=== PATIENT | male | born 1965 | race Caucasian/White ===

== ENCOUNTER → 2016-05-29 | Outpatient (REF) | payer OTHER ==
[~2016-05-29] MED LIST: CITA40TA4 PO; KLONOPIN PO; LEVO137T2 PO; TRAZ100T4 PO
[2016-05-29 12:25] LABS: BASO % 0.3 % (0.0-1.0); EOS % 0.4 % (0.0-3.0); LARGE UNSTAINED CELL # 0.1 K/mm3 (0.0-0.4); LARGE UNSTAINED CELL % 2.5 % (0.0-4.0); LYMPH # 0.9 K/mm3 (1.5-4.5); LYMPH % 26.5 % (24.0-44.0); MEAN CORPUSCULAR HEMOGLOBIN 30.4 pg (27.0-33.0); MEAN CORPUSCULAR HGB CONC 31.9 g/dl (32.0-36.5); MEAN CORPUSCULAR VOLUME 95.5 fl (80.0-96.0); MONO # 0.4 K/mm3 (0.0-0.8); MONO % 10.4 % (0.0-5.0); NEUTROPHILS # 2.1 K/mm3 (1.8-7.7); NEUTROPHILS % 59.8 % (36.0-66.0); PLATELET COUNT, AUTOMATED 352 k/mm3 (150-450); RED CELL DISTRIBUTION WIDTH 12.7 % (11.5-14.5); WHITE BLOOD COUNT 3.5 K/mm3 (4.0-10.0)
[2016-05-29 13:40] LABS: ALBUMIN 4.3 GM/DL (3.2-5.2); ALBUMIN/GLOBULIN RATIO 1.54 (1.00-1.93); ALKALINE PHOSPHATASE 71 U/L (45-117); ALT/SGPT 51 U/L (12-78); ANION GAP 10 MEQ/L (8-16); AST/SGOT 32 U/L (15-37); BILIRUBIN,TOTAL 0.6 MG/DL (0.2-1.0); BLOOD UREA NITROGEN 6 MG/DL (7-18); CALCIUM LEVEL 9.5 MG/DL (8.5-10.1); CARBON DIOXIDE LEVEL 30 MEQ/L (21-32); CHLORIDE LEVEL 103 MEQ/L (98-107); CHOLESTEROL LEVEL 193 MG/DL (<200); CREATININE FOR GFR 1.16 MG/DL (0.70-1.30); FREE T4 1.52 NG/DL (0.76-1.46); GLOMERULAR FILTRATION RATE > 60.0 (>60); GLUCOSE, FASTING 98 MG/DL (70-105); SODIUM LEVEL 143 MEQ/L (136-145); TOTAL PROTEIN 7.1 GM/DL (6.4-8.2); TRIGLYCERIDES LEVEL 86 MG/DL (<150)
== END ==
LOC: M SFHCADAM 10:19
PROVIDERS: ATTEND Family Medicine
DX: E89.0 Postprocedural hypothyroidism (principal); F51.01 Primary insomnia; E55.9 Vitamin D deficiency, unspecified

== ENCOUNTER → 2016-07-10 | Outpatient (REF) | payer OTHER ==
[2016-07-10 20:17] LABS: FREE T4 1.45 NG/DL (0.76-1.46)
== END ==
LOC: M SFHCADAM 15:26
PROVIDERS: ATTEND Physician Assistant Medical
DX: E89.0 Postprocedural hypothyroidism (principal)

== ENCOUNTER → 2016-07-21 | Outpatient (REF) | payer OTHER ==
[2016-07-21 14:01] LABS: ALBUMIN 3.7 GM/DL (3.2-5.2); ALBUMIN/GLOBULIN RATIO 1.09 (1.00-1.93); ALKALINE PHOSPHATASE 100 U/L (45-117); ALT/SGPT 24 U/L (12-78); ANION GAP 9 MEQ/L (8-16); AST/SGOT 38 U/L (15-37); BILIRUBIN,TOTAL 0.4 MG/DL (0.2-1.0); BLOOD UREA NITROGEN 4 MG/DL (7-18); CALCIUM LEVEL 9.1 MG/DL (8.5-10.1); CARBON DIOXIDE LEVEL 28 MEQ/L (21-32); CHLORIDE LEVEL 102 MEQ/L (98-107); CREATININE FOR GFR 0.81 MG/DL (0.70-1.30); GLOMERULAR FILTRATION RATE > 60.0 (>60); GLUCOSE, FASTING 92 MG/DL (70-105); POTASSIUM SERUM 4.2 MEQ/L (3.5-5.1); SODIUM LEVEL 139 MEQ/L (136-145); TOTAL PROTEIN 7.1 GM/DL (6.4-8.2)
[2016-07-21 14:38] LABS: BASO % 0.7 % (0.0-1.0); EOS # 0.1 K/mm3 (0.0-0.50); LARGE UNSTAINED CELL # 0.1 K/mm3 (0.0-0.4); LARGE UNSTAINED CELL % 2.3 % (0.0-4.0); LYMPH # 1.1 K/mm3 (1.5-4.5); LYMPH % 22.2 % (24.0-44.0); MEAN CORPUSCULAR HEMOGLOBIN 31.7 pg (27.0-33.0); MEAN CORPUSCULAR HGB CONC 32.6 g/dl (32.0-36.5); MEAN CORPUSCULAR VOLUME 97.2 fl (80.0-96.0); MONO # 0.5 K/mm3 (0.0-0.8); MONO % 11.4 % (0.0-5.0); NEUTROPHILS # 2.8 K/mm3 (1.8-7.7); NEUTROPHILS % 61.3 % (36.0-66.0); PLATELET COUNT, AUTOMATED 284 k/mm3 (150-450); RED CELL DISTRIBUTION WIDTH 13.7 % (11.5-14.5); WHITE BLOOD COUNT 4.5 K/mm3 (4.0-10.0)
== END ==
LOC: M SFHCADAM 11:52
PROVIDERS: ATTEND Physician Assistant Medical
DX: R04.2 Hemoptysis (principal)

== ENCOUNTER → 2016-07-21 | Outpatient (CLI) | payer OTHER ==
--- NOTE | 2016-07-21 15:40 | REP ---
Clinical: Hemoptysis . Comparison: 10/20/2014 . Technique: PA and lateral. Findings: The mediastinum and cardiac silhouette are normal. The lung carter are clear and without acute consolidation, effusion, or pneumothorax. A subtle density in the right lower lung field midclavicular line cannot be excluded. The skeletal structures are intact and normal. Impression: 1. Possible small subtle density in the right lower lung zone midclavicular line. Given the patient's history and findings, CT may be warranted for further investigation. Signed by Connor Woodard MD 07/21/2016 12:33 P
== END ==
LOC: M ADAMS 12:00
PROVIDERS: ATTEND Physician Assistant Medical
DX: R04.2 Hemoptysis (principal)

== ENCOUNTER → 2016-07-22 | Outpatient (CLI) | payer OTHER ==
[~2016-07-22] MED LIST changes: +ISOVUE-370 76% 100ML VIAL (Q9967) As Ordered ONE
--- NOTE | 2016-07-22 17:21 | REP ---
Clinical: Cough and shortness of breath. Hemoptysis. Technique: Axial contrast enhanced images from the thoracic inlet to the upper abdomen using 100 ml Isovue 370 intravenous contrast material with multiplanar re-formations. Findings: Satisfactory enhancement of the pulmonary vasculature is achieved and no filling defects are identified to suggest pulmonary embolus. Further evaluation of the mediastinum demonstrates normal thoracic aorta, heart and pericardium. The bilateral lung carter demonstrate right perihilar and infrahilar peribronchial thickening and small lingular opacity suggesting bronchitis and atelectasis. No pleural effusion or pneumothorax. No adenopathy noted. Surrounding musculoskeletal structures intact Impression: No evidence for pulmonary embolus. Bronchitis and small lingular atelectasis. Signed by Connor Woodard MD 07/22/2016 05:12 P
== END ==
LOC: M RAD 16:44
PROVIDERS: ATTEND Physician Assistant Medical
DX: R05 Cough (principal)

== ENCOUNTER → 2016-11-12 | Outpatient (REF) | payer OTHER, SELFPAY ==
[~2016-11-12] MED LIST changes: -ISOVUE-370 76% 100ML VIAL (Q9967) As Ordered ONE; +TRAZ-136 PO; -TRAZ100T4 PO
[2016-11-12 12:59] LABS: FREE T4 0.98 NG/DL (0.76-1.46)
== END ==
LOC: M SFHCADAM 09:14
PROVIDERS: ATTEND Physician Assistant Medical
DX: E89.0 Postprocedural hypothyroidism (principal)

== ENCOUNTER → 2017-09-28 | Outpatient (REF) | payer MEDICAID, SELFPAY ==
[2017-09-28 12:15] LABS: BASO # 0.1 10^3/uL (0.0-0.2); EOS # 0.1 10^3/uL (0.0-0.50); HEMATOCRIT 48.4 % (42.0-52.0); HEMOGLOBIN 16.2 g/dl (13.5-17.5); IMMATURE GRANULOCYTE % 0.2 % (0-3.0); LYMPH # 1.1 10^3/uL (1.5-4.5); LYMPH % 21.6 % (24.0-44.0); MEAN CORPUSCULAR HEMOGLOBIN 32.3 pg (27.0-33.0); MEAN CORPUSCULAR HGB CONC 33.5 g/dl (32.0-36.5); MEAN CORPUSCULAR VOLUME 96.6 fl (80.0-96.0); MONO # 0.7 10^3/uL (0.0-0.8); MONO % 14.5 % (0.0-5.0); NEUTROPHILS % 60.7 % (36.0-66.0); PLATELET COUNT, AUTOMATED 282 10^3/uL (150-450); RED BLOOD COUNT 5.01 10^6/uL (4.30-6.10); RED CELL DISTRIBUTION WIDTH 12.3 % (11.5-14.5)
[2017-09-28 12:42] LABS: ALBUMIN 3.8 GM/DL (3.2-5.2); ALBUMIN/GLOBULIN RATIO 1.19 (1.00-1.93); ALKALINE PHOSPHATASE 117 U/L (45-117); ALT/SGPT 70 U/L (12-78); ANION GAP 7 MEQ/L (8-16); AST/SGOT 81 U/L (7-37); BILIRUBIN,TOTAL 1.1 MG/DL (0.2-1.0); BLOOD UREA NITROGEN 5 MG/DL (7-18); CALCIUM LEVEL 8.8 MG/DL (8.5-10.1); CARBON DIOXIDE LEVEL 31 MEQ/L (21-32); CHLORIDE LEVEL 104 MEQ/L (98-107); CHOLESTEROL LEVEL 181 MG/DL (<200); CHOLESTEROL RISK RATIO 2.129 (<5); CREATININE FOR GFR 0.89 MG/DL (0.70-1.30); GLOMERULAR FILTRATION RATE > 60.0 (>56); GLUCOSE, FASTING 87 MG/DL (70-100); HDL CHOLESTEROL 85 MG/DL (>40); LDL CHOLESTEROL 86.8 MG/DL (<100); NON-HDL-C 96 MG/DL; POTASSIUM SERUM 4.1 MEQ/L (3.5-5.1); SODIUM LEVEL 142 MEQ/L (136-145); THYROID STIMULATING HORMONE 0.159 uIU/ML (0.358-3.740); TRIGLYCERIDES LEVEL 46 MG/DL (<150)
[2017-09-28 12:56] LABS: TOTAL 25(OH) VITAMIN D 28.5 NG/ML (30.0-100.0)
== END ==
LOC: M SFHCADAM 08:16
DX: Z00.00 Encounter for general adult medical examination without abnormal findings (principal); E89.0 Postprocedural hypothyroidism; E55.9 Vitamin D deficiency, unspecified
CPT/HCPCS: 84443

== ENCOUNTER → 2017-11-19 | Outpatient (CLI) | payer OTHER, SELFPAY | LOC: M ADAMS 16:27 | DX: R05 Cough (principal) | CPT/HCPCS: 71046 ==

== ENCOUNTER → 2017-12-11 | Outpatient (REF) | payer OTHER | LOC: M SFHCADAM 14:02 | DX: E89.0 Postprocedural hypothyroidism (principal) ==

== ENCOUNTER → 2018-07-27 | Outpatient (REF) | payer MEDICARE, OTHER, SELFPAY ==
[~2018-07-27] MED LIST changes: -TRAZ-136 PO; +TRAZ-163 PO
[2018-07-27 12:45] LABS: BASO # 0.1 10^3/uL (0.0-0.2); BASO % 1.3 % (0.0-1.0); EOS # 0.1 10^3/uL (0.0-0.50); EOS % 2.3 % (0.0-3.0); HEMATOCRIT 49.8 % (42.0-52.0); HEMOGLOBIN 16.7 g/dl (13.5-17.5); LYMPH # 1.4 10^3/uL (1.5-4.5); LYMPH % 24.2 % (24.0-44.0); MEAN CORPUSCULAR HEMOGLOBIN 32.6 pg (27.0-33.0); MEAN CORPUSCULAR HGB CONC 33.5 g/dl (32.0-36.5); MEAN CORPUSCULAR VOLUME 97.3 fl (80.0-96.0); MONO # 0.9 10^3/uL (0.0-0.8); MONO % 16.1 % (0.0-5.0); NEUTROPHILS # 3.1 10^3/uL (1.8-7.7); NEUTROPHILS % 55.9 % (36.0-66.0); PLATELET COUNT, AUTOMATED 285 10^3/uL (150-450); RED BLOOD COUNT 5.12 10^6/uL (4.30-6.10); WHITE BLOOD COUNT 5.6 10^3/uL (4.0-10.0)
[2018-07-27 13:09] LABS: ALT/SGPT 58 U/L (12-78); BILIRUBIN,TOTAL 0.5 MG/DL (0.2-1.0); BLOOD UREA NITROGEN 7 MG/DL (7-18); CALCIUM LEVEL 8.8 MG/DL (8.5-10.1); CARBON DIOXIDE LEVEL 28 MEQ/L (21-32); CHLORIDE LEVEL 103 MEQ/L (98-107); CHOLESTEROL LEVEL 222 MG/DL (<200); CHOLESTEROL RISK RATIO 3.313 (<5); CREATININE FOR GFR 0.87 MG/DL (0.70-1.30); FREE T4 1.54 NG/DL (0.76-1.46); GLOMERULAR FILTRATION RATE > 60.0 (>56); GLUCOSE, FASTING 81 MG/DL (70-100); HDL CHOLESTEROL 67 MG/DL (>40); LDL CHOLESTEROL 139 MG/DL (<100); NON-HDL-C 155 MG/DL; POTASSIUM SERUM 4.2 MEQ/L (3.5-5.1); SODIUM LEVEL 138 MEQ/L (136-145); THYROID STIMULATING HORMONE 0.449 uIU/ML (0.358-3.740); TOTAL PROTEIN 7.4 GM/DL (6.4-8.2); TRIGLYCERIDES LEVEL 82 MG/DL (<150)
== END ==
LOC: M SFHCADAM 08:05
PROVIDERS: ATTEND Physician Assistant Medical
DX: E89.0 Postprocedural hypothyroidism (principal); Z93.0 Tracheostomy status; R05 Cough
CPT/HCPCS: 80053; 80061; 84439; 84443; 85025; G0463

== ENCOUNTER → 2019-08-25 | Outpatient (REF) | payer OTHER, SELFPAY ==
[~2019-08-25] MED LIST changes: -TRAZ-163 PO; +TRAZ-257 PO
[2019-08-25 14:29] LABS: FREE T4 1.39 NG/DL (0.76-1.46); THYROID STIMULATING HORMONE 0.11 uIU/ML (0.358-3.740)
== END ==
LOC: M SFHCADAM 11:09
PROVIDERS: ATTEND Physician Assistant Medical
DX: E89.0 Postprocedural hypothyroidism (principal)

== ENCOUNTER → 2020-09-07 | Outpatient (REF) | payer OTHER, SELFPAY ==
[2020-09-07 12:49] LABS: BASO # 0.1 10^3/uL (0.0-0.2); BASO % 0.8 % (0.0-1.0); EOS # 0.1 10^3/uL (0.0-0.5); EOS % 1.6 % (0.0-3.0); HEMOGLOBIN 15.3 g/dl (13.5-17.5); LYMPH # 1.5 10^3/uL (1.5-5.0); LYMPH % 23.5 % (24.0-44.0); MEAN CORPUSCULAR HEMOGLOBIN 31.9 pg (27.0-33.0); MEAN CORPUSCULAR HGB CONC 31.9 g/dl (32.0-36.5); MEAN CORPUSCULAR VOLUME 100.2 fl (80.0-96.0); MONO # 0.9 10^3/uL (0.0-0.8); MONO % 14.4 % (2.0-8.0); NEUTROPHILS # 3.7 10^3/uL (1.5-8.5); NEUTROPHILS % 59.4 % (36.0-66.0); PLATELET COUNT, AUTOMATED 298 10^3/uL (150-450); RED BLOOD COUNT 4.79 10^6/uL (4.30-6.10); WHITE BLOOD COUNT 6.3 10^3/uL (4.0-10.0)
[2020-09-07 13:44] LABS: ALBUMIN 3.6 GM/DL (3.2-5.2); ALT/SGPT 33 U/L (12-78); BILIRUBIN,TOTAL 0.7 MG/DL (0.2-1.0); BLOOD UREA NITROGEN 5 MG/DL (7-18); CALCIUM LEVEL 8.9 MG/DL (8.5-10.1); CARBON DIOXIDE LEVEL 30 MEQ/L (21-32); CHLORIDE LEVEL 99 MEQ/L (98-107); CHOLESTEROL LEVEL 194 MG/DL (<200); CHOLESTEROL RISK RATIO 2.811 (<5); CREATININE FOR GFR 0.82 MG/DL (0.70-1.30); FREE T4 1.16 NG/DL (0.76-1.46); GLOMERULAR FILTRATION RATE > 60.0 (>56); GLUCOSE, FASTING 93 MG/DL (70-100); HDL CHOLESTEROL 69 MG/DL (>40); LDL CHOLESTEROL 105 MG/DL (<100); NON-HDL-C 125 MG/DL; POTASSIUM SERUM 4.3 MEQ/L (3.5-5.1); SODIUM LEVEL 134 MEQ/L (136-145); TOTAL PROTEIN 7.1 GM/DL (6.4-8.2); TRIGLYCERIDES LEVEL 102 MG/DL (<150)
[2020-09-07 14:16] LABS: TOTAL 25(OH) VITAMIN D 16.3 NG/ML (30.0-100.0)
== END ==
LOC: M SFHCADAM 09:42
PROVIDERS: ATTEND Physician Assistant Medical
DX: E89.0 Postprocedural hypothyroidism (principal); E55.9 Vitamin D deficiency, unspecified; F51.01 Primary insomnia

== ENCOUNTER → 2021-03-05 | Outpatient (REF) | payer OTHER, SELFPAY ==
[~2021-03-05] MED LIST changes: -CITA40TA4 PO; +CITA40TA7 PO
[2021-03-05 14:45] LABS: FREE T4 1.57 NG/DL (0.76-1.46); THYROID STIMULATING HORMONE 0.176 uIU/ML (0.358-3.740)
== END ==
LOC: M SFHCADAM 09:52
PROVIDERS: ATTEND Physician Assistant Medical
DX: E89.0 Postprocedural hypothyroidism (principal); Z12.11 Encounter for screening for malignant neoplasm of colon; Z12.12 Encounter for screening for malignant neoplasm of rectum

== ENCOUNTER → 2021-09-09 | Outpatient (REF) | payer OTHER | LOC: M SFHCADAM 09:56 | PROVIDERS: ATTEND Physician Assistant Medical | DX: Z53.9 Procedure and treatment not carried out, unspecified reason (principal) ==

== ENCOUNTER → 2022-04-29 | Outpatient (REF) | payer OTHER ==
[2022-04-30 13:41] LABS: BASO # 0.1 10^3/uL (0.0-0.2); BASO % 2.4 % (0.0-1.0); EOS # 0.1 10^3/uL (0.0-0.5); EOS % 1.7 % (0.0-3.0); HEMATOCRIT 46.4 % (42.0-52.0); HEMOGLOBIN 15.3 g/dl (13.5-17.5); LYMPH # 1.6 10^3/uL (1.5-5.0); LYMPH % 34.7 % (24.0-44.0); MEAN CORPUSCULAR HEMOGLOBIN 32.2 pg (27.0-33.0); MEAN CORPUSCULAR VOLUME 97.7 fl (80.0-96.0); MONO # 0.9 10^3/uL (0.0-0.8); MONO % 19.4 % (2.0-8.0); NEUTROPHILS # 1.9 10^3/uL (1.5-8.5); NEUTROPHILS % 41.6 % (36.0-66.0); PLATELET COUNT, AUTOMATED 170 10^3/uL (150-450); RED BLOOD COUNT 4.75 10^6/uL (4.30-6.10); WHITE BLOOD COUNT 4.6 10^3/uL (4.0-10.0)
[2022-04-30 14:05] LABS: THYROID STIMULATING HORMONE 0.157 uIU/ML (0.55-4.78)
[2022-04-30 14:06] LABS: TOTAL 25(OH) VITAMIN D 13.5 NG/ML (20.0-100.0)
[2022-04-30 14:09] LABS: ALBUMIN 3.8 G/DL (3.2-5.2); ALKALINE PHOSPHATASE 146 U/L (46-116); ALT/SGPT 30 U/L (7.0-40); AST/SGOT 151 U/L (<34); BLOOD UREA NITROGEN 6 MG/DL (9-23); CALCIUM LEVEL 8.7 MG/DL (8.5-10.1); CARBON DIOXIDE LEVEL 29 MMOL/L (20-31); CHLORIDE LEVEL 98 MMOL/L (98-107); CHOLESTEROL LEVEL 198 MG/DL (<200); CREATININE FOR GFR 0.71 MG/DL (0.70-1.30); GLOMERULAR FILTRATION RATE > 60.0 (>56); GLUCOSE, FASTING 85 MG/DL (60-100); LDL CHOLESTEROL 85.6 MG/DL (<100); NON-HDL-C 99 MG/DL; POTASSIUM SERUM 5.4 MMOL/L (3.5-5.1); SODIUM LEVEL 135 MMOL/L (136-145); TRIGLYCERIDES LEVEL 67 MG/DL (<150)
== END ==
LOC: M SFHCADAM 15:17
PROVIDERS: ATTEND Physician Assistant Medical
DX: E89.0 Postprocedural hypothyroidism (principal); E55.9 Vitamin D deficiency, unspecified; Z13.220 Encounter for screening for lipoid disorders; Z13.0 Encounter for screening for diseases of the blood and blood-forming organs and certain disorders involving the immune mechanism

== ENCOUNTER → 2022-05-12 | Outpatient (CLI) | payer OTHER | LOC: M RAD 07:20 | PROVIDERS: ATTEND Physician Assistant Medical | DX: K76.0 Fatty (change of) liver, not elsewhere classified (principal); R79.89 Other specified abnormal findings of blood chemistry ==

== ENCOUNTER 2022-11-23 19:38 | Emergency (ER) | payer OTHER ==
[~2022-11-23] VITALS: Ht 163.8 cm; Wt 65.9 kg
[2022-11-23 19:52] VITALS: TEMP 97.9
[2022-11-23] MEDS ORDERED: VITA1CAP25 PO (20:03)
[2022-11-23 21:12] LABS: BASO # 0.1 10^3/uL (0.0-0.2); BASO % 1.9 % (0.0-1.0); EOS # 0.1 10^3/uL (0.0-0.5); EOS % 2.1 % (0.0-3.0); HEMOGLOBIN 13.8 g/dl (13.5-17.5); LYMPH # 1.4 10^3/uL (1.5-5.0); LYMPH % 33.5 % (24.0-44.0); MEAN CORPUSCULAR HGB CONC 34.5 g/dl (32.0-36.5); MEAN CORPUSCULAR VOLUME 95.7 fl (80.0-96.0); MONO # 0.8 10^3/uL (0.0-0.8); MONO % 17.8 % (2.0-8.0); NEUTROPHILS # 1.9 10^3/uL (1.5-8.5); NEUTROPHILS % 44.5 % (36.0-66.0); PLATELET COUNT, AUTOMATED 134 10^3/uL (150-450); RED BLOOD COUNT 4.18 10^6/uL (4.30-6.10); WHITE BLOOD COUNT 4.2 10^3/uL (4.0-10.0)
[2022-11-23 21:22] LABS: INR 1.03; PARTIAL THROMBOPLASTIN TIME 31.4 SECONDS (24.8-34.2); PROTHROMBIN TIME 13.7 SECONDS (12.5-14.5)
[2022-11-23 21:31] LABS: CK-MB VALUE MASS 1.9 NG/ML (<3.6)
[2022-11-23 21:33] LABS: CPK CREATINE PHOSPHOKINASE 236 U/L (46-171)
[2022-11-23 21:35] LABS: BLOOD UREA NITROGEN < 5 MG/DL (9-23); CALCIUM LEVEL 8.6 MG/DL (8.5-10.1); CARBON DIOXIDE LEVEL 28 MMOL/L (20-31); CHLORIDE LEVEL 99 MMOL/L (98-107); CREATININE FOR GFR 0.63 MG/DL (0.70-1.30); GLOMERULAR FILTRATION RATE > 60.0 (>56); GLUCOSE, FASTING 94 MG/DL (60-100); POTASSIUM SERUM 3.8 MMOL/L (3.5-5.1); SODIUM LEVEL 138 MMOL/L (136-145)
[2022-11-23] MEDS ORDERED: ISOVUE-370 76% 100ML VIAL As Ordered ONE ×2 (22:03→22:20)
[2022-11-23 23:48] LABS: CK-MB VALUE MASS 1.6 NG/ML (<3.6)
[2022-11-23 23:49] LABS: LIPASE 46 U/L (12-53)
[2022-11-23 23:51] LABS: ALBUMIN 3.7 G/DL (3.2-5.2); ALKALINE PHOSPHATASE 158 U/L (46-116); ALT/SGPT 31 U/L (7.0-40); AST/SGOT 119 U/L (<34); BILIRUBIN,DIRECT 0.5 MG/DL (<0.4); BILIRUBIN,TOTAL 1.1 MG/DL (0.3-1.2); TOTAL PROTEIN 7.4 G/DL (5.7-8.2)
[2022-11-23 23:56] LABS: MB/CK RELATIVE INDEX 0.7 (< OR =4)
[2022-11-24] MEDS ORDERED: CEFD300C PO (00:02)
[2022-11-24] MEDS ORDERED: ZITHTAB PO (00:02)
[2022-11-24] MEDS ORDERED: CEFDINIR 300 MG CAP (OMNICEF) PO ONE (00:05)
[2022-11-24] MEDS ORDERED: AZITHROMYCIN 250MG TABLET PO ONE (00:05)
[2022-11-24 00:15] VITALS: BP 133/67; O2SAT 93
== END 2022-11-24 00:40 | disposition home or self-care (01) ==
LOC: EDBD 19:38 → M ED 19:38
DX: J18.9 Pneumonia, unspecified organism (principal); K80.50 Calculus of bile duct without cholangitis or cholecystitis without obstruction; E03.9 Hypothyroidism, unspecified; Z85.21 Personal history of malignant neoplasm of larynx; Z79.2 Long term (current) use of antibiotics; Z79.899 Other long term (current) drug therapy
CPT/HCPCS: 36415; 71045; 71275; 80048; 80076; 82550; 82553; 83690; 85025; 85379; 85610; 85730; 87486; 87581; 87633; 87798; 93005; 93041; 94760; 99285; Q9967

== ENCOUNTER → 2022-12-15 | Outpatient (REF) | payer MEDICARE ==
[~2022-12-15] MED LIST changes: +CEFD300C PO; +VITA1CAP25 PO; +ZITHTAB PO
[2022-12-15 18:12] LABS: HEPATITIS B CORE ANTIBODY IGM NEGATIVE (NEGATIVE); HEPATITIS C VIRUS ABY INDEX 0.17 INDEX (<0.8)
[2022-12-15 18:22] LABS: ALBUMIN 3.6 G/DL (3.2-5.2); ALKALINE PHOSPHATASE 140 U/L (46-116); ALT/SGPT 25 U/L (7.0-40); AST/SGOT 97 U/L (<34); BILIRUBIN,TOTAL 1.4 MG/DL (0.3-1.2); BLOOD UREA NITROGEN < 5 MG/DL (9-23); CALCIUM LEVEL 8.6 MG/DL (8.5-10.1); CARBON DIOXIDE LEVEL 31 MMOL/L (20-31); CHLORIDE LEVEL 98 MMOL/L (98-107); CREATININE FOR GFR 0.73 MG/DL (0.70-1.30); FREE T4 1.21 NG/DL (0.89-1.76); GLOMERULAR FILTRATION RATE > 60.0 (>56); GLUCOSE, FASTING 76 MG/DL (60-100); POTASSIUM SERUM 3.8 MMOL/L (3.5-5.1); SODIUM LEVEL 134 MMOL/L (136-145); THYROID STIMULATING HORMONE 7.982 uIU/ML (0.55-4.78); TOTAL PROTEIN 7.6 G/DL (5.7-8.2)
== END ==
LOC: M SFHCADAM 15:23
PROVIDERS: ATTEND Physician Assistant Medical
DX: R79.89 Other specified abnormal findings of blood chemistry (principal); E89.0 Postprocedural hypothyroidism

== ENCOUNTER → 2023-11-27 | Outpatient (CLI) | payer MEDICARE, MEDICAID | LOC: M OUTALCOH 09:27 | PROVIDERS: ATTEND Psychiatry & Neurology Psychiatry | DX: F10.20 Alcohol dependence, uncomplicated (principal) ==

== ENCOUNTER → 2024-01-19 | Outpatient (CLI) | payer MEDICARE, MEDICAID | LOC: M OUTALCOH 09:14 | PROVIDERS: ATTEND Psychiatry & Neurology Psychiatry | DX: F10.20 Alcohol dependence, uncomplicated (principal) | CPT/HCPCS: 90791; G0463 ==

== ENCOUNTER 2024-01-21 10:55 | Outpatient (RCR) | payer MEDICARE, MEDICAID | END 2024-01-25 | LOC: M OUTALCOH 10:55 | PROVIDERS: ATTEND Psychiatry & Neurology Psychiatry | DX: F10.20 Alcohol dependence, uncomplicated (principal) ==

== ENCOUNTER → 2024-02-25 | Outpatient (RCR) | payer MEDICARE, MEDICAID | LOC: M OUTALCOH 02-04 10:03 | PROVIDERS: ATTEND Psychiatry & Neurology Psychiatry | DX: F10.20 Alcohol dependence, uncomplicated (principal) ==

== ENCOUNTER 2024-03-03 10:02 | Outpatient (RCR) | payer MEDICARE, MEDICAID | END 2024-03-26 | LOC: M OUTALCOH 10:02 | PROVIDERS: ATTEND Psychiatry & Neurology Psychiatry | DX: F10.20 Alcohol dependence, uncomplicated (principal) ==

== ENCOUNTER → 2024-05-16 | Outpatient (REF) | payer MEDICARE ==
[2024-05-16 12:44] LABS: BASO # 0.1 10^3/uL (0.0-0.2); BASO % 1.3 % (0.0-1.0); EOS # 0.1 10^3/uL (0.0-0.5); EOS % 1.4 % (0.0-3.0); HEMATOCRIT 45.2 % (42.0-52.0); HEMOGLOBIN 15.3 g/dl (13.5-17.5); LYMPH # 1.5 10^3/uL (1.5-5.0); LYMPH % 23.4 % (24.0-44.0); MEAN CORPUSCULAR HEMOGLOBIN 33.6 pg (27.0-33.0); MEAN CORPUSCULAR HGB CONC 33.8 g/dl (32.0-36.5); MEAN CORPUSCULAR VOLUME 99.3 fl (80.0-96.0); MONO # 1.1 10^3/uL (0.0-0.8); MONO % 17.3 % (2.0-8.0); NEUTROPHILS # 3.6 10^3/uL (1.5-8.5); NEUTROPHILS % 56.4 % (36.0-66.0); PLATELET COUNT, AUTOMATED 140 10^3/uL (150-450); RED BLOOD COUNT 4.55 10^6/uL (4.30-6.10); WHITE BLOOD COUNT 6.4 10^3/uL (4.0-10.0)
[2024-05-16 13:17] LABS: THYROID STIMULATING HORMONE 0.863 uIU/ML (0.55-4.78)
[2024-05-16 13:19] LABS: TOTAL 25(OH) VITAMIN D 9.5 NG/ML (20.0-100.0)
[2024-05-16 13:20] LABS: ALBUMIN 3.8 G/DL (3.2-5.2); ALKALINE PHOSPHATASE 140 U/L (40-129); ALT/SGPT 20 U/L (7.0-40); AST/SGOT 66 U/L (<34); BILIRUBIN,TOTAL 1.1 MG/DL (0.3-1.2); BLOOD UREA NITROGEN 7 MG/DL (9-23); CALCIUM LEVEL 9.4 MG/DL (8.5-10.1); CARBON DIOXIDE LEVEL 31 MMOL/L (20-31); CHLORIDE LEVEL 101 MMOL/L (98-107); CHOLESTEROL LEVEL 234 MG/DL (<200); CHOLESTEROL RISK RATIO 2.52 (<5); CREATININE FOR GFR 0.62 MG/DL (0.70-1.30); GLOMERULAR FILTRATION RATE > 60.0 (>56); GLUCOSE, FASTING 84 MG/DL (60-100); HDL CHOLESTEROL 92.6 MG/DL (>40); LDL CHOLESTEROL 126.6 MG/DL (<100); NON-HDL-C 141.4 MG/DL; SODIUM LEVEL 141 MMOL/L (136-145); TOTAL PROTEIN 8.4 G/DL (5.7-8.2); TRIGLYCERIDES LEVEL 74 MG/DL (<150)
[2024-05-16 13:21] LABS: FREE T4 1.56 NG/DL (0.89-1.76)
== END ==
LOC: M SFHCADAM 08:00
PROVIDERS: ATTEND Physician Assistant Medical
DX: E89.0 Postprocedural hypothyroidism (principal); E55.9 Vitamin D deficiency, unspecified; F10.10 Alcohol abuse, uncomplicated; K76.0 Fatty (change of) liver, not elsewhere classified